=== PATIENT | female | born 1975 | race African-American/Black ===

== ENCOUNTER 2017-02-28 16:33 | Emergency (ER) | payer MEDICAID ==
[~2017-02-28] VITALS: Ht 167.6 cm; Wt 83.0 kg
[2017-02-28] MEDS ORDERED: ACET12.52 PO (16:45)
[2017-02-28] MEDS ORDERED: DICLOFENAC EC PO (16:45)
[2017-02-28] MEDS ORDERED: IBUP-1547 PO (16:45)
[2017-02-28] MEDS ORDERED: CYCL10 PO (16:45)
[2017-02-28] MEDS ORDERED: RANI150T7 PO (16:45)
[2017-02-28] MEDS ORDERED: MELO-273 PO (16:45)
[2017-02-28] MEDS ORDERED: TRAZ-144 PO (16:45)
[2017-02-28] MEDS ORDERED: FAMO20 PO (16:45)
[2017-02-28] MEDS ORDERED: PANT40TA25 PO (16:45)
[2017-02-28] MEDS ORDERED: MIRT15 PO (16:45)
[2017-02-28] MEDS ORDERED: SERT50TA12 PO (16:45)
[2017-02-28] MEDS ORDERED: SIMV-261 PO (16:45)
[2017-02-28 18:45] VITALS: BP 125/85
== END 2017-02-28 18:58 | disposition home or self-care (01) ==
LOC: EMS 16:37
DX: J02.8 Acute pharyngitis due to other specified organisms (principal); B97.89 Other viral agents as the cause of diseases classified elsewhere; E78.00 Pure hypercholesterolemia, unspecified; K21.9 Gastro-esophageal reflux disease without esophagitis
CPT/HCPCS: 87430; 99283

== ENCOUNTER 2018-02-04 14:02 | Emergency (ER) | payer MEDICAID, OTHER ==
[~2018-02-04] VITALS: Ht 167.6 cm; Wt 83.2 kg
[~2018-02-04 14:02] MED LIST: ACET12.52 PO; CYCL10 PO; DICLOFENAC EC PO; FAMO20 PO; IBUP-2071 PO; MELO-107 PO; MIRT15 PO; PANT40TA25 PO; RANI150T7 PO; SERT50TA12 PO; SIMV-261 PO; TRAZ-219 PO
[2018-02-04] MEDS ORDERED: ONDANSETRON HCL 4 MG/2 ML VIAL IVP ONE (14:45)
[2018-02-04] MEDS ORDERED: SODIUM CHLORIDE 0.9% 1,000 ML IV ONE ×2 (14:45→17:00)
[2018-02-04 15:17] LABS: BASOPHILS % (AUTO) 0.7 % (0.0-2.0); EOSINOPHILS % (AUTO) 0.2 % (1.0-6.0); HEMOGLOBIN 15.4 g/dL (12.0-16.0); LYMPHOCYTES % (AUTO) 27.2 % (22.0-44.0); MEAN CORPUSCULAR HEMOGLOBIN 28.6 pg (26.0-34.0); MEAN CORPUSCULAR HGB CONC 34.3 G/dL (31.0-37.0); MEAN CORPUSCULAR VOLUME 83 fL (80-100); MONOCYTES # (AUTO) 0.5 K/uL (0.1-1.0); MONOCYTES % (AUTO) 6.2 % (2.0-9.0); NEUTROPHILS # (AUTO) 4.9 K/uL (1.8-7.7); NEUTROPHILS % (AUTO) 65.7 % (40.0-70.0); PLATELET COUNT (AUTO) 413 K/uL (150-450); RED CELL DISTRIBUTION WIDTH 13.7 % (11.5-14.5)
[2018-02-04 15:33] LABS: ANION GAP 12 mmol/L (8-16); CARBON DIOXIDE 25 mmol/L (22-29); CHLORIDE 100 mmol/L (98-107); CREATININE 0.66 mg/dL (0.60-1.30); GLOMERULAR FILTR. RATE CALC > 60 mL/min (>60); GLUCOSE,RANDOM 85 mg/dL (70-110); POTASSIUM 3.6 mmol/L (3.5-5.1); SODIUM SERUM 137 mmol/L (136-145); UREA NITROGEN, BLOOD 9 mg/dL (7-18)
[2018-02-04 15:51] LABS: B-TYPE NATRIURETIC PEPTIDE 14 pg/mL (0-100)
[2018-02-04 15:59] LABS: ALANINE AMINOTRANSFERASE 42 U/L (12-78); ALBUMIN 4.1 g/dL (3.4-5.0); ALKALINE PHOSPHATASE 144 U/L (46-116); ASPARTATE AMINOTRANSFERASE 18 U/L (15-37); BILIRUBIN,TOTAL 0.7 mg/dL (0.1-1.0); CREATINE KINASE MB 0.7 ng/mL (0-5); CREATINE KINASE, TOTAL 150 U/L (26-192); LIPASE 119 U/L (73-393); TOTAL PROTEIN, SERUM 8.3 g/dL (6.4-8.2)
[2018-02-04 16:13] LABS: APPEARANCE,URINE CLEAR (CLEAR); BILIRUBIN,URINE NEGATIVE (NEGATIVE); GLUCOSE, URINE (UA) NEGATIVE (NEGATIVE); KETONES,URINE TRACE mg/dL (NEGATIVE); LEUKOCYTE ESTERASE ,URINE NEGATIVE (NEGATIVE); NITRATE,URINE NEGATIVE (NEGATIVE); OCCULT BLOOD,URINE TRACE (NEGATIVE); PROTEIN,URINE NEGATIVE (NEGATIVE); UROBILINOGEN,URINE 0.2 mg/dL (<=1.0)
[2018-02-04 16:22] LABS: RBC,URINE 0-2 /HPF (0-2)
[2018-02-04 16:23] LABS: BACTERIA,URINE None Seen /HPF (None Seen); WBC,URINE None Seen /HPF (0-5)
[2018-02-04 16:24] LABS: SQUAMOUS EPITHELIAL CELL,UR Few /LPF (None Seen)
[2018-02-04] MEDS ORDERED: KETOROLAC TROMETHAMINE 30 MG/ML VIAL IVP ONE (17:00)
[2018-02-04 18:03] VITALS: BP 106/70
== END 2018-02-04 18:31 | disposition home or self-care (01) ==
LOC: EMS 14:03
DX: E86.0 Dehydration (principal); R19.7 Diarrhea, unspecified; R10.13 Epigastric pain; R06.00 Dyspnea, unspecified; R11.10 Vomiting, unspecified; E78.00 Pure hypercholesterolemia, unspecified; M79.7 Fibromyalgia; K21.9 Gastro-esophageal reflux disease without esophagitis; M19.90 Unspecified osteoarthritis, unspecified site; R53.1 Weakness; Z79.899 Other long term (current) drug therapy
CPT/HCPCS: 36415; 71045; 80053; 81001; 82550; 82553; 83690; 83880; 84484; 84703; 85025; 85379; 93005; 96361; 96374; 96375; 99285; J1885; J2405; J7030